=== PATIENT | female | born 1970 | race Caucasian/White ===

== ENCOUNTER 2017-07-07 17:46 | Emergency (ER) | payer OTHER ==
[~2017-07-07] VITALS: Ht 165.1 cm; Wt 120.0 kg
[2017-07-07 18:21] VITALS: BP 136/87; PULSE 109; RESP 16; TEMP 97.8; O2SAT 98
[2017-07-07] MEDS ORDERED: NEUR600T PO (22:16)
[2017-07-07] MEDS ORDERED: LAMI200T PO (22:16)
[2017-07-07] MEDS ORDERED: CYMB60CA PO (22:18)
[2017-07-07 22:25] VITALS: BP 128/77; PULSE 91; RESP 16; O2SAT 100
--- NOTE | 2017-07-07 22:31 | PD ---
HPI Chief Complaint: Pain: Acute or Chronic Time Seen by Provider: 22:15 Travel History International Travel<30 days: No Contact w/Intl Traveler<30days: No Traveled to known affect area: No History of Present Illness HPI The patient was seen and examined in the presence of the nurse. This patient complains of left leg pain. Duration 3 days. No injury. She is worried about a DVT. She had a Flight from [place] to get here followed by several long car rides. No history of DVT. She is ambulatory. She did have a meniscus repair of that left knee 6 weeks ago but has not had pain for a month prior to 3 days ago. Severity is moderate. No alleviating factors. Pain can be exacerbated with weightbearing. PFSH Past Medical History Anxiety: Yes Depression: Yes Musculoskeletal: Yes (joint pain) Tetanus Vaccination: < 5 Years Influenza Vaccination: No ?: Not : 3 Para: 3 Past Surgical History Cholecystectomy: Yes Hysterectomy: Yes (partial 2015) Social History Alcohol Use: No Tobacco Use: No Substance Use: No Allergies-Medications (Allergen,Severity, Reaction): Coded Allergies: No Known Allergies (Unverified , 07/07/17) Reported Meds & Prescriptions Reported Meds & Active Scripts Active Reported Cymbalta DR (Duloxetine HCl) 60 Mg Capdr 60 Mg PO BID Neurontin (Gabapentin) 600 Mg Tab 600 Mg PO TID Lamictal (Lamotrigine) 200 Mg Tab 200 Mg PO HS Review of Systems General / Constitutional: No: Fever Eyes: No: Visual changes HENT: No: Headaches Cardiovascular: No: Chest Pain or Discomfort Respiratory: No: Shortness of Breath Gastrointestinal: No: Abdominal Pain Genitourinary: No: Dysuria Musculoskeletal: Positive: Pain Skin: No Rash Neurologic: No: Weakness Psychiatric: No: Depression Endocrine: No: Polydipsia Hematologic/Lymphatic: No: Easy Bruising Physical Exam Narrative GENERAL: Well-nourished, well-developed patient in no apparent distress. SKIN: Focused skin assessment reveals no rash and nodules. Skin is Warm and dry. HEAD: Atraumatic. Normocephalic. EYES: Pupils equal and round. No scleral icterus. No injection or drainage. ENT: No nasal bleeding or discharge. Mucous membranes pink and moist. NECK: Trachea midline. No JVD. CARDIOVASCULAR: Regular rate and rhythm. No murmur appreciated. RESPIRATORY: No accessory muscle use. Clear to auscultation. Breath sounds equal bilaterally. GASTROINTESTINAL: Abdomen soft, non-tender, nondistended. Hepatic and splenic margins not palpable. MUSCULOSKELETAL: No obvious deformities. No clubbing. No cyanosis. No edema. There is no erythema or ecchymosis or swelling of the left leg. NEUROLOGICAL: Awake and alert. No obvious cranial nerve deficits. Motor grossly within normal limits. Normal speech. PSYCHIATRIC: Appropriate mood and affect; insight and judgment normal. Data Data Last Documented VS Vital Signs Date Time Temp Pulse Resp B/P (MAP) Pulse Ox O2 Delivery O2 Flow Rate FiO2 07/07/17 22:25 91 16 128/77 (94) 100 Room Air 07/07/17 18:21 97.8 Orders Orders D-Dimer (07/07/17 22:21) Complete Blood Count With Diff (07/07/17 22:21) Prothrombin Time / Inr (Pt) (07/07/17 22:21) Act Partial Throm Time (Ptt) (07/07/17 22:21) Labs Laboratory Tests Test 07/07/17 22:30 White Blood Count 7.5 TH/MM3 Red Blood Count 4.31 MIL/MM3 Hemoglobin 14.1 GM/DL Hematocrit 38.4 % Mean Corpuscular Volume 89.2 FL Mean Corpuscular Hemoglobin 32.6 PG Mean Corpuscular Hemoglobin Concent 36.6 % Red Cell Distribution Width 14.2 % Platelet Count 282 TH/MM3 Mean Platelet Volume 8.2 FL Neutrophils (%) (Auto) 49.0 % Lymphocytes (%) (Auto) 36.0 % Monocytes (%) (Auto) 8.6 % Eosinophils (%) (Auto) 4.6 % Basophils (%) (Auto) 1.8 % Neutrophils # (Auto) 3.7 TH/MM3 Lymphocytes # (Auto) 2.7 TH/MM3 Monocytes # (Auto) 0.6 TH/MM3 Eosinophils # (Auto) 0.3 TH/MM3 Basophils # (Auto) 0.1 TH/MM3 CBC Comment AUTO DIFF Differential Comment AUTO DIFF CONFIRMED Platelet Estimate NORMAL Platelet Morphology Comment NORMAL Red Cell Morphology Comment NORMAL Prothrombin Time 9.8 SEC Prothromb Time International Ratio 1.0 RATIO Activated Partial Thromboplast Time 25.9 SEC D-Dimer Quantitative (PE/DVT) 0.42 MG/L FEU [facility] Medical Decision Making Medical Screen Exam Complete: Yes Emergency Medical Condition: Yes Medical Record Reviewed: Yes Differential Diagnosis DVT, postsurgical pain, muscle strain Narrative Course I have reviewed the patient's electronic medical record. Patient essentially came in to rule out DVT of her left leg. She is a low risk patient and therefore like to attempt to rule out with d-dimer CBC coagulation studies are normal D-dimer is 0.42 DVT is ruled out Patient has some soft tissue musculoskeletal pain in the left knee region. She had recent meniscus surgery there and I have encouraged her to contact orthopedist for follow-up In the meantime ice elevate and limit weightbearing Diagnosis Primary Impression: Acute pain of left knee Additional Instructions: Ice elevate and limit weightbearing on left knee Follow-up with the orthopedist Med/Other Pt SpecificInfo: Other Disposition: 01 DISCHARGE HOME Condition: Stable Jerrell Isaacs MD Jul 07, 2017 22:31
[2017-07-07 23:05] LABS: AUTOMATED NEUTROPHIL # 3.7 TH/MM3 (1.8-7.7); BASOPHIL # 0.1 TH/MM3 (0-0.2); BASOPHIL % 1.8 % (0.0-2.0); EOSINOPHIL # 0.3 TH/MM3 (0-0.4); EOSINOPHIL % 4.6 % (0.0-4.0); HEMATOCRIT 38.4 % (35.0-46.0); HEMOGLOBIN 14.1 GM/DL (11.6-15.3); LYMPHOCYTE # 2.7 TH/MM3 (1.0-4.8); MEAN CELL VOLUME 89.2 FL (80.0-100.0); MEAN CORPUSCULAR HEMOGLOBIN 32.6 PG (27.0-34.0); MEAN PLATELET VOLUME 8.2 FL (7.0-11.0); MONO % 8.6 % (0.0-8.0); MONOCYTE # 0.6 TH/MM3 (0-0.9); PLATELET COUNT 282 TH/MM3 (150-450); RED BLOOD COUNT 4.31 MIL/MM3 (4.00-5.30); RED CELL DISTRIBUTION WIDTH 14.2 % (11.6-17.2); WHITE BLOOD COUNT 7.5 TH/MM3 (4.0-11.0)
[2017-07-07 23:16] LABS: PROTHROMBIN TIME - PATIENT 9.8 SEC (9.8-11.6)
[2017-07-07 23:18] LABS: MEAN CORPUSCULAR HGB CONC 36.6 % (32.0-36.0)
[2017-07-07 23:34] LABS: D-DIMER 0.42 MG/L FEU (0.00-0.50)
== END 2017-07-08 00:19 | disposition home or self-care (01) ==
LOC: NEPD 17:46
DX: M25.562 Pain in left knee (principal); F41.9 Anxiety disorder, unspecified; F32.9 Major depressive disorder, single episode, unspecified; Z79.899 Other long term (current) drug therapy
CPT/HCPCS: 85025; 85379; 85610; 85730; 99283